=== PATIENT | female | born 1985 | race Caucasian/White ===

== ENCOUNTER 2021-04-19 10:45 | Emergency (ER) | payer OTHER, MEDICAID ==
[~2021-04-19] VITALS: Ht 167.6 cm; Wt 83.9 kg
[2021-04-19] MEDS ORDERED: EFFEXOR XR37.5 MG PO (10:56)
[2021-04-19 11:45] LABS: URINE BILIRUBIN NEGATIVE (Negative); URINE BLOOD NEGATIVE (Negative); URINE COLOR YELLOW; URINE GLUCOSE-RANDOM NEGATIVE (Negative); URINE KETONES NEGATIVE (Negative); URINE NITRITE-REFLEX NEGATIVE (Negative); URINE PROTEIN NEGATIVE (Negative); URINE SPECIFIC GRAVITY <= 1.005 (1.005-1.030); URINE UROBILINOGEN 0.2 E.U./dl (0.2-1.0)
[2021-04-19 11:47] LABS: URINE CLARITY CLOUDY; URINE LEUKOCYTES-REFLEX 3+ (Negative)
[2021-04-19 11:51] LABS: ABSOLUTE EOSINOPHILS 0.3 thou/uL (0.0-0.7); ABSOLUTE LYMPHOCYTES 2.2 thou/uL (0.8-5.3); ABSOLUTE MONOCYTES 0.7 thou/uL (0.0-1.2); ABSOLUTE NEUTROPHILS 5.4 thou/uL (1.6-8.1); BASOPHILS 0.4 %; EOSINOPHILS 3.2 %; HEMATOCRIT 44.1 % (37.0-47.0); HEMOGLOBIN 15.2 gm/dL (12.0-15.0); LYMPHOCYTES 25.8 %; MCHC 34.5 g/dL (28.0-37.0); MCV 92.9 fL (80.0-100.0); MONOCYTES 8.2 %; NUCLEATED RBCS 0 /100WBC; PLATELET COUNT* 247 thou/uL (150-400); POLYS 62.4 %; RBC 4.74 mil/uL (4.20-5.00); RDW-CV 12.9 % (10.5-14.5); WBC 8.7 thou/uL (4.0-11.0)
[2021-04-19 11:54] LABS: CALCIUM 9.3 mg/dL (8.5-10.1); CREATININE 0.9 mg/dL (0.6-1.3); POTASSIUM 3.7 mmol/L (3.5-5.1)
[2021-04-19 11:57] LABS: CASTS None Seen /LPF (None Seen); CRYSTALS None Seen /LPF (None Seen); SQUAMOUS >10 Many /LPF (0-3); URINE RBC None Seen /HPF (0-2); URINE WBC-REFLEX 6-15 Few /HPF (0-5)
[2021-04-19 12:00] LABS: ALBUMIN 4.4 g/dL (3.4-5.0); TOTAL BILIRUBIN 0.8 mg/dL (<0.1-1.0); TOTAL PROTEIN 8.4 g/dL (6.4-8.2)
[2021-04-19] MEDS ORDERED: ATIVAN0.5 M1 PO (14:22)
[2021-04-19 14:36] VITALS: BP 141/102
--- NOTE | 2021-04-19 14:52 | EKG ---
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1985 Requested By: Princess Rae Order Number: [id number] MD: Adolph Csatle Measurements Intervals [place] Rate: 82 P: 51 VT: 148 QRS: 11 QRSD: 83 T: 27 QT: 387 QTc: 452 Interpretive Statements Sinus rhythm Low voltage, precordial leads Baseline wander in lead(s) II,III,aVF,V4,V5 No previous ECG available for comparison Electronically Signed On 04-19-2021 14:52:08 CDT by Adolph Castle [email or web address] <ELECTRONICALLY SIGNED> By: Adolph Castle MD, [facility] 04/19/21 1452 1139 1139 Adolph Castle MD, [facility] /EPI
== END 2021-04-19 14:37 | disposition home or self-care (01) ==
LOC: M.ERS 10:45
PROVIDERS: Nurse Practitioner Family
DX: F41.0 Panic disorder [episodic paroxysmal anxiety] (principal); R94.5 Abnormal results of liver function studies; R42 Dizziness and giddiness; Z98.51 Tubal ligation status; Z98.890 Other specified postprocedural states; Z79.899 Other long term (current) drug therapy

== ENCOUNTER 2021-04-23 15:17 | Emergency (ER) | payer OTHER, MEDICAID ==
[~2021-04-23] VITALS: Ht 167.6 cm; Wt 83.9 kg
[~2021-04-23 15:17] MED LIST: ATIVAN0.5 M1 PO; EFFEXOR XR37.5 MG PO
[2021-04-23 15:39] VITALS: BP 139/98
== END 2021-04-23 15:40 | disposition home or self-care (01) ==
LOC: M.ERS 15:17
DX: F41.0 Panic disorder [episodic paroxysmal anxiety] (principal); R42 Dizziness and giddiness; Z98.890 Other specified postprocedural states; Z98.51 Tubal ligation status; Z79.899 Other long term (current) drug therapy

== ENCOUNTER 2021-05-17 08:17 | Emergency (ER) | payer OTHER, MEDICAID ==
[~2021-05-17] VITALS: Ht 167.6 cm; Wt 81.7 kg
[2021-05-17] MEDS ORDERED: PREDNISONE 20 M20 MG PO (11:03)
[2021-05-17] MEDS ORDERED: APAP W/CODEINE1 TA2 PO (11:25)
[2021-05-17] MEDS ORDERED: PROMETHAZI6.25 MG/5 PO (11:25)
[2021-05-17] MEDS ORDERED: ALBUTEROL2.5 MG/31 INH (11:25)
[2021-05-17 11:36] VITALS: BP 154/72
== END 2021-05-17 11:37 | disposition home or self-care (01) ==
LOC: M.ERS 08:17
DX: J06.9 Acute upper respiratory infection, unspecified (principal); Z20.822 Contact with and (suspected) exposure to COVID-19; F41.9 Anxiety disorder, unspecified; Z98.51 Tubal ligation status

== ENCOUNTER 2021-06-17 10:12 | Emergency (ER) | payer OTHER, MEDICAID ==
[~2021-06-17] VITALS: Ht 167.6 cm; Wt 83.9 kg
[~2021-06-17 10:12] MED LIST changes: +ALBUTEROL2.5 MG/31 INH; +APAP W/CODEINE1 TA2 PO; +PREDNISONE 20 M20 MG PO; +PROMETHAZI6.25 MG/5 PO
[2021-06-17 11:28] LABS: ABSOLUTE LYMPHOCYTES 2.7 thou/uL (0.8-5.3); ABSOLUTE NEUTROPHILS 8.6 thou/uL (1.6-8.1); MCHC 33.6 g/dL (28.0-37.0)
[2021-06-17 11:30] LABS: ABSOLUTE BASOPHILS 0.1 thou/uL (0.0-0.2); ABSOLUTE EOSINOPHILS 0.2 thou/uL (0.0-0.7); ABSOLUTE MONOCYTES 0.8 thou/uL (0.0-1.2); BASOPHILS 0.7 %; EOSINOPHILS 1.5 %; HEMATOCRIT 43.8 % (37.0-47.0); HEMOGLOBIN 14.7 gm/dL (12.0-15.0); LYMPHOCYTES 21.8 %; MCV 95.4 fL (80.0-100.0); MONOCYTES 6.4 %; MPV 6.9 fl. (7.2-11.1); NUCLEATED RBCS 0 /100WBC; PLATELET COUNT* 274 thou/uL (150-400); POLYS 69.6 %; RBC 4.59 mil/uL (4.20-5.00); RDW-CV 13.3 % (10.5-14.5); WBC 12.4 thou/uL (4.0-11.0)
[2021-06-17 11:40] LABS: CREATININE 0.7 mg/dL (0.6-1.3); POTASSIUM 3.7 mmol/L (3.5-5.1)
[2021-06-17 11:50] LABS: ALBUMIN 3.6 g/dL (3.4-5.0); MAGNESIUM 1.8 mg/dL (1.8-2.4); TOTAL BILIRUBIN 0.4 mg/dL (<0.1-1.0); TOTAL PROTEIN 7.5 g/dL (6.4-8.2)
[2021-06-17] MEDS ORDERED: TRANSDERM-SCOP1 EACH TRANSDERM (13:45)
[2021-06-17] MEDS ORDERED: FLEXERIL PO (13:45)
[2021-06-17 14:04] VITALS: BP 145/95
--- NOTE | 2021-06-17 15:25 | EKG ---
[place] [address] ELECTROCARDIOGRAM REPORT Name: DARYL KENDALL Room: [facility]#: [id number] Admission: 06/17/21 Attend Phys: Discharge: 06/17/21 Date of : 83 Date of Service: 06/17/21 1054 Report #: [id number] THIS REPORT FOR: //name// 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[place] : 1985 Requested By: Princess Rae Order Number: [id number] MD: Óscar Trujillo Measurements Intervals [place] Rate: 88 P: 51 DE: 153 QRS: 32 QRSD: 84 T: 35 QT: 353 QTc: 427 Interpretive Statements Sinus rhythm Baseline wander in lead(s) II,III,aVF Compared to ECG 04/19/2021 11:39:51 No significant changes Electronically Signed On 06-17-2021 15:24:59 [employer] by Óscar Trujillo [email or web address] <ELECTRONICALLY SIGNED> By: Óscar Trujillo MD, FACC 06/17/21 1524 1054 1054 Óscar Trujillo MD, [facility] /EPI
== END 2021-06-17 14:05 | disposition home or self-care (01) ==
LOC: M.ERS 10:12
PROVIDERS: Nurse Practitioner Family
DX: M54.6 Pain in thoracic spine (principal); Z20.822 Contact with and (suspected) exposure to COVID-19; R42 Dizziness and giddiness; R00.2 Palpitations; J32.2 Chronic ethmoidal sinusitis; F41.9 Anxiety disorder, unspecified; Z98.51 Tubal ligation status; Z87.891 Personal history of nicotine dependence